=== PATIENT | female | born 1990 | race Caucasian/White ===

== ENCOUNTER 2017-01-26 16:30 | Inpatient (IN) | payer OTHER ==
[2017-01-26] MEDS: ELECTROLYTE-148 SOLN 1,000 ML IV SCH ×2 (17:00→21:20)
[2017-01-26 17:44] VITALS: BMI 29.2
[2017-01-26] MEDS ORDERED: BUTORPHANOL TARTRATE 1 MG/ML VIAL IVPUSH ONE (18:00)
[2017-01-26 18:01] LABS: BASOPHIL 0.3 % (0-2.0); EOSINOPHIL 1.7 % (0-4.5); MCH 25.5 pg (25.7-33.7); MCHC 32.1 g/dl (32.0-36.0); MEAN CELL VOLUME 79.4 fl (80-96); MEAN PLT VOLUME 8.4 fl (7.5-11.1); NEUTROPHILS 75.6 % (42.8-82.8); PLATELET COUNT 239 K/MM3 (134-434); RDW 15.8 % (11.6-15.6)
[2017-01-26 18:33] LABS: CALCIUM 8.8 mg/dL (8.5-10.1); COCKROFT - GAULT 285.3875; CREATININE 0.4 mg/dL (0.55-1.02)
[2017-01-26 18:42] LABS: INR 0.98 (0.82-1.09); PROTHROMBIN TIME (PATIENT) 10.8 SEC (9.98-11.88)
[2017-01-26] MEDS: FENTANYL/BUPIVACAINE/NS/PF - PCEA - 50 ML DISP.SYRIN EP SCH (21:00)
--- NOTE | 2017-01-26 21:27 | HP ---
Past Medical History - Admission Chief Complaint: spontaneous rupture of membranes History of Present Illness: 26 yo G P0 EDC EGA c/o of srom in office at 4pm +AFM no bleeding + active contractions History Source: Patient - Past Medical History ...: 2 ...Para: 1 ...Term: 0 ...: 0 ...Spon : 1 ...Induced : 0 ...Multiple Gestation: 0 ...EDC by Sono: 01/31/17 - Past Surgical History Past Surgical History: Yes: None Hx Myomectomy: No Hx Transabdominal Cerclage: No - Smoking History Smoking history: Never smoked Have you smoked in the past 12 months: No - Alcohol/Substance Use Hx Alcohol Use: No - Social History Usual Living Arrangement: Yes: With Spouse History of Recent Travel: No Home Medications - Allergies Allergies/Adverse Reactions: Allergies Allergy/AdvReac Type Severity Reaction Status Date / Time No Known Allergies Allergy Verified 01/26/17 17:45 - Home Medications Home Medications: Ambulatory Orders Ferrous Sulfate 1 tab PO DAILY 12/03/16 Vit/Iron Fumarate/FA [ Tablet] 1 tab PO DAILY 12/03/16 Review of Systems - Review of Systems Constitutional: reports: No Symptoms Eyes: reports: No Symptoms HENT: reports: No Symptoms Neck: reports: No Symptoms Cardiovascular: reports: No Symptoms Respiratory: reports: No Symptoms Gastrointestinal: reports: No Symptoms Genitourinary: reports: No Symptoms Breasts: reports: No Symptoms Reported Musculoskeletal: reports: No Symptoms Integumentary: reports: No Symptoms Neurological: reports: No Symptoms Endocrine: reports: No Symptoms Hematology/Lymphatic: reports: No Symptoms Psychiatric: reports: No Symptoms Physical Exam - Maternity Vital Signs: Vital Signs Temperature 97.7 F 01/26/17 17:32 Pulse Rate 87 01/26/17 17:32 Respiratory Rate 14 01/26/17 17:32 Blood Pressure 125/77 01/26/17 17:32 O2 Sat by Pulse Oximetry (%) - Abdominal Exam/OB Fundal Height: 40 Number of Fetuses: Single Contractions: Yes Regularity: Irregular Intensity: Moderate Monitor Mode: External Category: I Accelerations: Non-Uniform Decelerations: None - Vaginal Exam/OB Dilatation (cm): 3-4 cm Amniotic Membrane Status: Ruptured Presentation: Vertex/Position - Physical Exam Musculoskeletal: Yes: WNL Extremities: Yes: WNL Edema: No - Labs Lab Results: CBC, BMP 01/26/17 17:55 01/26/17 17:55 Hemorrhage Risk Assessment - Risk Factors Risk Score: 0 Risk Level: Low Risk Problem List - Problems (1) Spontaneous rupture of amniotic membranes Code(s): CRM5028 - Assessment/Plan IUP at 39 weeks SROM Plan Epidural pitocin augmentation if need
--- NOTE | 2017-01-26 23:21 | PN ---
Ante-Partal Exam - Subjective Subjective: Pt comfortable with epidural Vital Signs: Vital Signs Temperature 97.9 F 01/26/17 22:00 Pulse Rate 75 01/26/17 22:15 Respiratory Rate 18 01/26/17 22:15 Blood Pressure 116/53 01/26/17 22:15 O2 Sat by Pulse Oximetry (%) 100 01/26/17 22:15 Bleeding: No Headache: No Visual changes: No Right upper quadrant pain: No - Contractions Contractions: Yes Regularity: Regular Intensity: Mild/Mod Monitor Mode: External - Exam during Labor Heart Rate: 140 Category: I Monitor Accelerations: Present Monitor Decelerations: None Exam: Vaginal Dilatation (cm): 5-6 Effacement (%): 80 Amniotic Membrane Status: Ruptured Presentation: Vertex Station: -1 - Intrapartum Hemorrhage Risk Risk Score: 0 Risk Level: Low Risk - Assessment/Plan Assessment/Plan: active labor srom Cat 1 Plan Continue labor progress epidural
[2017-01-27] MEDS ORDERED: BISACODYL 10 MG SUPP.RECT RC PRN (04:58)
[2017-01-27] MEDS ORDERED: METHYLERGONOVINE MALEATE 0.2 MG/1 ML AMP IM PRN ×2 (04:58→11:37)
[2017-01-27] MEDS ORDERED: BENZOCAINE 20% 57 GM BOTTLE TP PRN (04:58)
[2017-01-27] MEDS ORDERED: BENZOCAINE 28 GM HEMORRHOIDAL OINTMENT TP PRN (04:58)
[2017-01-27] MEDS ORDERED: WITCH HAZEL 50% (TUCKS) 40 PAD/JAR PAD TP PRN (04:58)
--- NOTE | 2017-01-27 04:58 | PN ---
Ante-Partal Exam - Subjective Subjective: Pt doing well Vital Signs: Vital Signs Temperature 98.7 F 01/27/17 02:00 Pulse Rate 71 01/27/17 04:15 Respiratory Rate 18 01/27/17 04:15 Blood Pressure 123/71 01/27/17 04:15 O2 Sat by Pulse Oximetry (%) 100 01/27/17 04:15 Bleeding: No Headache: No Visual changes: No Right upper quadrant pain: No - Contractions Contractions: Yes Regularity: Regular Monitor Mode: External - Exam during Labor Variability: Moderate Category: II Monitor Accelerations: Present Monitor Decelerations: Variable Exam: Vaginal Presentation: Vertex Station: 0 - Intrapartum Hemorrhage Risk Risk Score: 0 Risk Level: Low Risk - Assessment/Plan Assessment/Plan: Cat 2 occ variable moderate variability Active labor Plan Dec epidural will encourage to push when feels urge
[2017-01-27] MEDS ORDERED: D5W-LR W/ 20 UNITS OXYTOCIN 1,000 ML IV SCH (05:00)
[2017-01-27] MEDS: FENTANYL/BUPIVACAINE/NS/PF - PCEA - 50 ML DISP.SYRIN EP SCH (07:00)
--- NOTE | 2017-01-27 09:56 | PN ---
Ante-Partal Exam - Subjective Subjective: Patient now feeling pressure and contractions. Has been fully dilated since approx 5am. Started pushing around 930 a.m. Pt giving good effort. Vital Signs: Vital Signs Temperature 98.7 F 01/27/17 02:00 Pulse Rate 87 01/27/17 07:15 Respiratory Rate 15 01/27/17 07:15 Blood Pressure 130/69 01/27/17 07:15 O2 Sat by Pulse Oximetry (%) 100 01/27/17 07:15 Bleeding: No Headache: No Visual changes: No Right upper quadrant pain: No Pain (scale 1-10): 7 - Contractions Contractions: Yes Regularity: Regular Intensity: Mod/Strong Monitor Mode: External - Exam during Labor Variability: Moderate Category: II Monitor Accelerations: Present Monitor Decelerations: Variable (nonrecurrent) Exam: Vaginal Dilatation (cm): 10 Effacement (%): 100 Amniotic Membrane Status: Ruptured Presentation: Vertex Station: +1 - Assessment/Plan Assessment/Plan: 26 y/o with SIUP at 39.3 weeks, in labor - AFVSS - FHTS cat 2 with nonrecurrent variables with pushing - still with moderate variability and accels, will monitor - discussed with patient plan of care - pt has been fully dilated and has tried pushing on 3 separate occasions. Have started pushing again for the past 30 minutes. After discussion with patient, she requests delivery if no progress with pushing after 1 hour. Will push for 1 hour and then make plan for delivery - may need delivery if no progress X 1 hour. R/B/A of discussed with patient, she agrees to plan - nursing and neonatology aware
[2017-01-27] MEDS ORDERED: BUPIVACAINE HCL/PF 0.25% (2.5MG/ML) 10 ML VIAL ONE (11:29)
[2017-01-27] MEDS ORDERED: IBUPROFEN 800 MG/8 ML IJ IVPB PRN (11:37)
[2017-01-27] MEDS: OXYTOCIN 20 UNITS in 0.9% NS 1,000 ML IV SCH ×3 (11:58→22:41)
[2017-01-27] MEDS ORDERED: HEPATITIS B VIR VAC (ENGERIX) 10 MCG/0.5 ML VIAL IM ONE (12:23)
[2017-01-27 12:31] LABS: ARTERIAL BLD GAS O2 SATURATION 36.6 % (90-98.9); ARTERIAL BLOOD GAS BASE EXCESS -3.1 meq/l (-2-2); ARTERIAL BLOOD GAS HCO3 22.1 meq/L (22-26); ARTERIAL BLOOD GAS pH 7.34 (7.35-7.45)
[2017-01-27 12:40] LABS: ARTERIAL BLOOD GAS PO2 21.6 mmHg (80-100)
--- NOTE | 2017-01-27 12:53 | OP ---
Operative Note - Note: Operative Date: 01/27/17 Pre-Operative Diagnosis: SIUP at 39.3 weeks, prolonged ROM, failure to descend Operation: primary low transverse delivery Findings: normal bilateral tubes/ovaries heme stained urine intra and post op Surgeon: Vicky Billings Income Tax Manager: Jeff Glasgow Anesthesiologist/KINESIOLOGY PROFESSOR: Brandy Goss Anesthesia: Epidural Specimens Removed: placenta, cord blood ABGs Estimated Blood Loss (mls): 800 Operative Report Dictated: Yes
[2017-01-27] MEDS ORDERED: ONDANSETRON 4 MG/2 ML VIAL IVPB PRN (13:06)
[2017-01-27] MEDS ORDERED: TUBERCULIN PPD 5 TU/0.1ML SYRINGE (IN PATIENT USE ONLY) ID ONE (16:15)
[2017-01-27] MEDS: CEFAZOLIN (PRE-DOCKED) 50 ML IVPB SCH (17:28)
[2017-01-27 17:45] LABS: BASOPHIL 0.1 % (0-2.0); MCH 25.4 pg (25.7-33.7); MEAN CELL VOLUME 79.6 fl (80-96); MEAN PLT VOLUME 8.5 fl (7.5-11.1); NEUTROPHILS 87.4 % (42.8-82.8); PLATELET COUNT 208 K/MM3 (134-434); RDW 15.6 % (11.6-15.6); WHITE BLOOD COUNT 13.1 K/mm3 (4.0-10.0)
[2017-01-28] MEDS: CEFAZOLIN (PRE-DOCKED) 50 ML IVPB SCH ×2 (02:17→09:24)
[2017-01-28] MEDS: OXYTOCIN 20 UNITS in 0.9% NS 1,000 ML IV SCH (06:35)
[2017-01-28 07:09] LABS: BASOPHIL 0.4 % (0-2.0); EOSINOPHIL 0.5 % (0-4.5); MCHC 32.7 g/dl (32.0-36.0); MEAN CELL VOLUME 79.6 fl (80-96); MEAN PLT VOLUME 7.9 fl (7.5-11.1); NEUTROPHILS 80.8 % (42.8-82.8); PLATELET COUNT 172 K/MM3 (134-434); RDW 15.9 % (11.6-15.6); WHITE BLOOD COUNT 12.9 K/mm3 (4.0-10.0)
--- NOTE | 2017-01-28 07:53 | PN ---
Post Progress Note - Subjective Subjective: Pt seen/evaluated post . Feeling well. Pain controlled, tolerating clear diet. Lochia moderate but decreasing. Not yet OOB, no flatus or void yet. NO CP/SOB/F/C/CUBA or any other issues/complaints. Pt with heme stained urine yesterday, urine clear yellow this a.m. Type of Delivery: Primary C/S Vital Signs: Vital Signs Temperature 99.0 F 01/28/17 06:00 Pulse Rate 120 H 01/28/17 06:00 Respiratory Rate 18 01/28/17 06:00 Blood Pressure 120/70 01/28/17 06:00 O2 Sat by Pulse Oximetry (%) 100 01/27/17 13:45 Uterus: Yes: Fundus Firm, Fundus below umbilicus Incision: Yes: Dressing dry and intact Abdomen/GI: Yes: Abdomen soft, Tolerating PO. No: Abdominal Distention, Tender , Passing flatus Lochia: Yes: Rubra Lochia, amount: Moderate Extremities: Yes: Calves non-tender, Edema (1+ LE edema B/L, non pitting) Perineum: Yes: Intact Activity: Ambulating - Labs Labs: CBC WBC 12.9 K/mm3 (4.0-10.0) H 01/28/17 06:35 RBC 3.73 M/mm3 (3.60-5.2) 01/28/17 06:35 Hgb 9.7 GM/dL (10.7-15.3) L 01/28/17 06:35 Hct 29.7 % (32.4-45.2) L 01/28/17 06:35 MCV 79.6 fl (80-96) L 01/28/17 06:35 MCHC 32.7 g/dl (32.0-36.0) 01/28/17 06:35 RDW 15.9 % (11.6-15.6) H 01/28/17 06:35 Plt Count 172 K/MM3 (134-434) 01/28/17 06:35 MPV 7.9 fl (7.5-11.1) 01/28/17 06:35 Neutrophils % 80.8 % (42.8-82.8) 01/28/17 06:35 Lymphocytes % 10.7 % (8-40) D 01/28/17 06:35 Monocytes % 7.6 % (3.8-10.2) 01/28/17 06:35 Eosinophils % 0.5 % (0-4.5) D 01/28/17 06:35 Basophils % 0.4 % (0-2.0) D 01/28/17 06:35 Problem List - Problems (1) delivery delivered Code(s): O82 - ENCOUNTER FOR DELIVERY WITHOUT INDICATION (2) Anemia Code(s): D64.9 - ANEMIA, UNSPECIFIED (3) Hematuria Code(s): R31.9 - HEMATURIA, UNSPECIFIED Assessment/Plan 26 y/o POD#1 s/p primary delivery for arrest of descent - AFebrile - tachycardia this a.m. with HR 113, pt asymptomatic. Hgb overall stable post op. Keep IV fluids, will monitor. - Hgb 9.7 post op, will continue with vitamins and PO iron - advance diet as tolerated - hematuria resolving, likely 2/2 urethral/bladder trauma from patient being fully dilated and pushing - UA ordered, ok to d/c dahl catheter this afternoon for voiding trial - routine post /post op care
--- NOTE | 2017-01-28 07:55 | DS ---
Physical Exam-ADAPTIVE PHYSICAL EDUCATOR Vital Signs: Vital Signs Temperature 99.0 F 01/28/17 06:00 Pulse Rate 120 H 01/28/17 06:00 Respiratory Rate 18 01/28/17 06:00 Blood Pressure 120/70 01/28/17 06:00 O2 Sat by Pulse Oximetry (%) 100 01/27/17 13:45 Labs: CBC, BMP 01/28/17 06:35 01/26/17 17:55 Delivery - Delivery Type of Anesthesia: Epidural Episiotomy/Laceration: None EBL (cc): 800 Delivery, Single - Stages of Labor Date 1st Stage Initiatied: 01/26/17 Time 1st Stage Initiated: 18:00 Date 2nd Stage Initiated: 01/27/17 Time 2nd Stage Initiated: 08:00 Date of Delivery: 01/27/17 Time of Delivery: 11:56 Time Placenta Delivered: 11:57 Placenta: Yes: Manual Removal - Condition of Store Group Manager/Construction Project Assistant Present: Yes Name: Nancy Lopez Gender: Male Weight: 7 lb 11 oz Position: Left, OA Total Hours ROM (Hrs/Mins): 19/47 - 1 Minute Total Score: 9 5 Minutes Total Score: 9 - [place] Feeding Plan Initial Plan: Exclusive throughout hospitalization Discharge Summary Reason For Visit: LABOR Current Active Problems Anemia (Acute) delivery delivered (Acute) Hematuria (Acute) Spontaneous rupture of amniotic membranes (Acute) Procedures: Principal: primary low transverse section Hospital Course: Patient admitted on 01/26/17 with SROM and in labor. Patient labored throughout the night on 01/26 and received an epidural for pain control. She then progressed to fully dilated and pushing on 01/27/17 but due to failure to descend had a primary delivery. Please see operative report for full details. Patient had hematuria immediately post op which resolved by post op day 1. The patient then had an uncomplicated post recovery and was discharged home in stable condition on post op day 3. Condition: Good - Instructions Diet, Activity, Other Instructions: Physical activity Resume your normal everyday activity as tolerated but no heavy lifting or strenuou exercise until seen by your surgeon. You may walk unlimited amounts and climb stairs. You may resume driving the car when you feel safe and comfortable behind the wheel. No sexual activity as instructed. Wound care If there are tapes on the skin under leave them in place. They will peel off in the next 7 to 10 days. Do Not Peel them off. You may shower the day after surgery. If there are tapes present on the skin, you may shower over them. Diet There are no dietary restrictions. Eat healthy, high-fiber foods. Drink 6 to 8 glasses of liquid each day. This will assist in keeping your bowels regular. Pain management You may take Tylenol = or Ibuprofen (for example, Motrin, Advil etc.) for mild pain. If any narcotic pain medication is ordered, it should be taken as prescribed for moderate to severe pain. Call MD for any of the following: Severe pain not relieved by medication Fever of 101 or higher Excessive bleeding or drainage on dressing Inability to urinate Referrals: Vicky Billings DO [Staff Physician] - 1 Week Disposition: HOME - Home Medications Comprehensive Discharge Medication List: Ambulatory Orders Ferrous Sulfate 1 tab PO DAILY 12/03/16 Vit/Iron Fumarate/FA [ Tablet] 1 tab PO DAILY 12/03/16
--- NOTE | 2017-01-28 08:06 | OP ---
DATE OF OPERATION: 01/27/2017 PREOPERATIVE DIAGNOSIS: Arrest of descent, full-term at 39-3/7 weeks and prolonged rupture of membrane. POSTOPERATIVE DIAGNOSIS: Arrest of descent, full-term at 39-3/7 weeks and prolonged rupture of membrane. PROCEDURE: Primary low transverse section. SURGEON: Vicky Billings DO SCREENER OPERATOR: FABIAN Wood ESTIMATED BLOOD LOSS: 800 mL. COMPLICATIONS: None. ANESTHESIA: Epidural anesthesia administered by Brandy Goss MD. COUNTS: Sponge, needle, and instrument counts correct at the end of the case. SPECIMENS: Included placenta and cord blood gases. DISPOSITION: Stable to PACU. FINDINGS: Included normal bilateral tubes and ovaries and heme-stained urine status post procedure. BRIEF HISTORY AND PROCEDURE: The patient is a 26-year-old G3, P1-0-1-1 who arrived to labor and delivery on the evening of January 26, 2017, after complaints of spontaneous rupture of membranes. Patient was noted to have light meconium-stained fluid. The patient was admitted in labor and progressed to fully dilated throughout the night between January 26, 2017, to January 27, 2017. On the morning of January 27, 2017, at approximately 5 a.m., the patient was found to be fully dilated, but the presenting part was at approximately -1 to 0 station. The patient was allowed to passively descend in labor, and in the morning at approximately 9 a.m. on January 27, 2017, the presenting part appeared to still be at approximately 0 station. At this point the patient had the urge to push. The patient pushed for approximately 1 hour in 3 separate episodes of pushing, and after making little to no descent, the patient had requested a section at that time. Risks, benefits, and alternatives to the procedure were explained, and consents for the were signed at this time. The patient was then taken back to the operating room where the epidural that she had received earlier in her labor process was bolused for pain control. She was placed in the dorsal supine position on the operating room table, and a Schofield catheter had been placed earlier and was functioning properly. Clear yellow urine was appreciated. At this time she was then prepped and draped in the usual sterile fashion in the dorsal supine position, and a hard timeout was performed. A Pfannenstiel skin incision was created in the skin using the scalpel and carried to the underlying layer of rectus fascia with the scalpel as well as with the Bovie. The fascia was incised on either side of midline with the Bovie, and the fascial incision was carried in the superolateral direction with the Bovie. The fascia was tented up with Marie clamps and dissected off the underlying layer of rectus muscle with the Bovie. The musculature was identified in the midline and bluntly, and the peritoneum was entered sharply and then carefully dissected to allow for adequate room for delivery. A bladder blade was inserted. A transverse incision was created in the lower uterine segment, and this incision was extended bluntly in the superolateral direction. Next, the was delivered from the left occiput anterior position, along with the remainder of the which delivered with ease. The cord was clamped twice and cut in between. The was then taken over to the warmer to be assessed by the neonatology staff where it received scores of 9 and 9. Placenta was then delivered intact manually. The uterus was exteriorized from the abdomen, inspected, and cleared of all amniotic membrane and debris with a dry lap sponge. The hysterotomy was reapproximated in a double-layer closure, first using 1 Vicryl suture in a running locked fashion and then 0 Biosyn suture in a running locked fashion. There appeared to be some bleeding at the angle of the incision, which was repaired in several [id number] sutures using 0 Biosyn suture until hemostasis was achieved. The posterior cul-de-sac was suctioned. Bilateral tubes and ovaries were inspected and noted to be normal. The uterus was placed back into the abdomen. Bilateral gutters were inspected and cleared of all debris. The hysterotomy was again reinspected and the portion in the midline was noted to be bleeding, and a single [id number] suture with 0 Biosyn suture was placed to achieve hemostasis. Bladder appeared to be intact, and no trauma was appreciated. Next, the peritoneal layer was reapproximated using chromic suture in a running fashion. The musculature was reapproximated in 2 interrupted sutures using the 0 Biosyn suture. The fascia was reapproximated using 1 Vicryl in a running fashion. Subcutaneous tissue was reapproximated in sleeve interrupted sutures using 0 Biosyn, and the skin was reapproximated using 3-0 Vicryl in a subcuticular fashion. Steri-Strips were applied. The patient tolerated the procedure well, was recovering in stable condition in the recovery room on the floor at the time of this dictation. VICKY BILLINGS DO /[id number]
[2017-01-28 08:53] LABS: URINE APPEARANCE CLOUDY; URINE BILIRUBIN NEGATIVE (NEGATIVE); URINE COLOR AMBER; URINE GLUCOSE (UA) NEGATIVE (NEGATIVE); URINE KETONE TRACE (NEGATIVE); URINE LEUK ESTERASE NEGATIVE (NEGATIVE); URINE NITRITE NEGATIVE (NEGATIVE); URINE UROBILINOGEN NEGATIVE E.U./dl (0.2-1.0)
[2017-01-28 09:01] LABS: URINE BLOOD 3+ (NEGATIVE); URINE PROTEIN 1+ (NEGATIVE)
[2017-01-28 09:08] LABS: URINE MUCUS MODERATE; URINE RBC 157 /hpf (0-3); URINE WBC 10 /hpf (3-5)
[2017-01-28] MEDS: IBUPROFEN 600 MG TABLET (FP) PO PRN ×3 (09:37→21:43)
[2017-01-28] MEDS: ACETAMINOPHEN 325 MG TABLET (FP) PO PRN ×3 (09:37→21:44)
[2017-01-28] MEDS: SIMETHICONE 80 MG TAB.CHEW (FP) PO PRN ×3 (09:37→21:43)
[2017-01-28] MEDS ORDERED: PATIENT'S OWN MEDICATION (NON-FORMULARY) (Ferrous Sulfate [Ferrous Sulfate] 1 TAB) PO SCH (10:00)
[2017-01-28] MEDS ORDERED: DIPHTH,PERTUSS(ACELL),TET 0.5 ML DISP.SYRIN IM ONE (10:00)
[2017-01-28] MEDS ORDERED: BISACODYL 10 MG SUPP.RECT RC PRN (11:38)
--- NOTE | 2017-01-28 12:01 | PN ---
Progress Note (short form) - Note Progress Note: Progress Note: Anesthesia post op note. S/P , Under eoidural with duramorph. POD#1. Pat seen and examined. ambulating, tolerating po, Pain controlled. VSS no apparent post anesthesia complications. Signed off.
[2017-01-28] MEDS ORDERED: SENNOSIDES/DOCUSATE COMBO (SENNA PLUS) TABLET (UD) PO PRN (22:00)
[2017-01-29] MEDS: SIMETHICONE 80 MG TAB.CHEW (FP) PO PRN ×2 (06:05→19:07)
[2017-01-29] MEDS: IBUPROFEN 600 MG TABLET (FP) PO PRN ×2 (06:05→19:08)
[2017-01-29] MEDS: ACETAMINOPHEN 325 MG TABLET (FP) PO PRN ×2 (06:07→19:06)
[2017-01-29] MEDS: FERROUS SO4 325 MG TABLET (FP) PO SCH ×2 (10:53→21:20)
[2017-01-29] MEDS: PRENATAL VITAMINS W/ FOLIC ACID TABLET (FP) PO SCH (10:53)
--- NOTE | 2017-01-29 14:53 | PN ---
Post Progress Note - Subjective Subjective: Pt seen/evaluated and doing well. Pain controlled, tolerating diet. Ambulating , voiding and passing flatus. No other complaints/concerns. Ready to go home tomorrow. Type of Delivery: Primary C/S Vital Signs: Vital Signs Temperature 97.7 F 01/28/17 22:00 Pulse Rate 103 H 01/28/17 22:00 Respiratory Rate 18 01/28/17 22:00 Blood Pressure 122/66 01/28/17 22:00 O2 Sat by Pulse Oximetry (%) 100 01/27/17 13:45 Uterus: Yes: Fundus Firm, Fundus below umbilicus Incision: Yes: Sutures intact (with steri strips) Abdomen/GI: Yes: Abdomen soft, Passing flatus, Tolerating PO. No: Abdominal Distention, Tender Lochia: Yes: Rubra Lochia, amount: Small Extremities: Yes: Calves non-tender. No: Edema Perineum: Yes: Intact Activity: Ambulating - Labs Labs: CBC WBC 12.9 K/mm3 (4.0-10.0) H 01/28/17 06:35 RBC 3.73 M/mm3 (3.60-5.2) 01/28/17 06:35 Hgb 9.7 GM/dL (10.7-15.3) L 01/28/17 06:35 Hct 29.7 % (32.4-45.2) L 01/28/17 06:35 MCV 79.6 fl (80-96) L 01/28/17 06:35 MCHC 32.7 g/dl (32.0-36.0) 01/28/17 06:35 RDW 15.9 % (11.6-15.6) H 01/28/17 06:35 Plt Count 172 K/MM3 (134-434) 01/28/17 06:35 MPV 7.9 fl (7.5-11.1) 01/28/17 06:35 Neutrophils % 80.8 % (42.8-82.8) 01/28/17 06:35 Lymphocytes % 10.7 % (8-40) D 01/28/17 06:35 Monocytes % 7.6 % (3.8-10.2) 01/28/17 06:35 Eosinophils % 0.5 % (0-4.5) D 01/28/17 06:35 Basophils % 0.4 % (0-2.0) D 01/28/17 06:35 Problem List - Problems (1) delivery delivered Code(s): O82 - ENCOUNTER FOR DELIVERY WITHOUT INDICATION (2) Anemia Code(s): D64.9 - ANEMIA, UNSPECIFIED (3) Hematuria Code(s): R31.9 - HEMATURIA, UNSPECIFIED Assessment/Plan 26 y/o POD#2 s/p primary delivery for arrest of descent - AFVSS - Hgb 9.7 post op, will continue with vitamins and PO iron - regular diet, PO pain meds, encourage ambulation - routine post /post op care
[2017-01-30] MEDS: IBUPROFEN 600 MG TABLET (FP) PO PRN (06:26)
[2017-01-30] MEDS: ACETAMINOPHEN 325 MG TABLET (FP) PO PRN (06:27)
[2017-01-30 08:36] LABS: BASOPHIL 0.2 % (0-2.0); EOSINOPHIL 2.5 % (0-4.5); MCH 26.3 pg (25.7-33.7); MCHC 33.3 g/dl (32.0-36.0); MEAN CELL VOLUME 78.8 fl (80-96); MEAN PLT VOLUME 7.6 fl (7.5-11.1); NEUTROPHILS 77.2 % (42.8-82.8); PLATELET COUNT 187 K/MM3 (134-434); RDW 15.6 % (11.6-15.6); WHITE BLOOD COUNT 7.9 K/mm3 (4.0-10.0)
[2017-01-30] MEDS: PRENATAL VITAMINS W/ FOLIC ACID TABLET (FP) PO SCH (09:48)
[2017-01-30] MEDS: FERROUS SO4 325 MG TABLET (FP) PO SCH (09:48)
[2017-01-30 12:19] VITALS: BP 115/65; PULSE 69; TEMP 97.9
--- NOTE | 2017-02-03 14:57 | PATH ---
Surgical Pathology Report Patient Name: MARCIE SORIANO Med. Rec. #: [id number] /Age/Gender: 1990 (Age: 26) / F Account: [id number] Location: [facility]BS/[facility] Taken: 01/27/2017 Received: 01/28/2017 Reported: 02/03/2017 Physicians: Vicky Billings M.D. Specimen(s) Received PLACENTA Clinical History 39.3 weeks IUP, meconium, failure to descend, PROM Primary c/section Final Diagnosis PLACENTA, DELIVERY: FOCALLY DISRUPTED THIRD TRIMESTER PLACENTA WITH MILD INCREASE IN PREVILLOUS, PERIVILLOUS, AND PRECHORIONIC FIBRIN DEPOSITION, THREE VESSEL UMBILICAL CORD, AND PLACENTAL MEMBRANES WITH ACUTE CHORIOAMNIONITIS, ACUTE INFLAMMATION OF CHORIONIC PLATE AND MECONIUM HISTIOCYTOSIS. Electronically Signed Lee Shen M.D. Gross Description The specimen is received fresh, labeled "placenta" and is a 405 gram, 15.8 x 13.0 x 3.2 cm placenta with attached membranes and umbilical cord. The attached membranes are weiss green, meconium stained, translucent with focal past these and insert marginally. The umbilical cord measures 21 cm in length and averages 0.9 cm in diameter. The cord inserts eccentrically, 0.5 cm to the nearest margin. No true knots or strictures are identified. Cut surface of the umbilical cord reveals 3 vessels. The surface is sofia-green, meconium stained with fibrin deposition and appropriate caliber vessels. The maternal surface is red-brown with focal defects. Sectioning reveals red-brown, spongy parenchyma. No focal lesions are identified. Student Life Advisor sections are submitted in three cassettes as follows: 1- membrane rolls and umbilical cord; 2-3- full thickness sections of placenta. 02/02/2017 saudi02/02/2017
== END 2017-01-30 11:30 | disposition home or self-care (01) | DRG 540 ==
LOC: JLDR 16:30 → J3W 01-27 14:52
PROVIDERS: ADMIT Obstetrics & Gynecology; ATTEND Obstetrics & Gynecology
PROC: 10D00Z1 Extraction of Products of Conception, Low, Open Approach (ICD-10-PCS; principal; 2017-01-27)
DX: O32.4XX0 Maternal care for high head at term, not applicable or unspecified (principal); O63.9 Long labor, unspecified; Z3A.39 39 weeks gestation of pregnancy; Z37.0 Single live birth
CPT/HCPCS: 36415; 36600; 80048; 81003; 81015; 82803; 85025; 85610; 85730; 86593; 86850; 86900; 86901; 88307-TC; 90715